=== PATIENT | female | born 1990 | race Caucasian/White ===

== ENCOUNTER 2016-04-25 19:56 | Emergency (ER) | payer MEDICAID, OTHER ==
[2016-04-25 20:03] VITALS: BP 113/79
--- NOTE | 2016-04-25 20:37 | EDM.PDOC ---
ED HPI HEAD INJURY - General Chief Complaint: Head Injury Stated Complaint: CONCUSSION?? Time Seen by Provider: 04/25/16 20:10 Source of Information: Reports: Patient History Limitations: Reports: No limitations - History of Present Illness INITIAL COMMENTS - FREE TEXT/NARRATIVE: fell on Monday against footboard states room went black but unsure if completely "out", Since has had frontal headache, been dizzy and nauseated. Severity: mild Worsens with: movement Associated Symptoms: Reports: headache, nausea/vomiting, dizziness. 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 OB/BYN History: edc 09/25/14 Other Musculoskeletal History: steroid injection right shoulder Other Psychiatric History: allergy to seroquel - Past Surgical History Other HEENT Surgeries/Procedures: lazy eye both side, has has several eye surgeries GI Surgical History: Reports: Hernia repair/other Social & Family History - Family History Family Medical History: Noncontributory - Tobacco Use Smoking Status *Q: Never Smoker Years of Tobacco use: 10 Used Tobacco, but Quit: Yes Month Tobacco Last Used: 11/11/13 Second Hand Smoke Exposure: No - Caffeine Use Caffeine Use: Reports: Coffee, Soda - Alcohol Use Days Per Week of Alcohol Use: 0 - Recreational Drug Use Recreational Drug Use: No Drug Use in Last 12 Months: Yes Recreational Drug Type: Reports: Marijuana/Hashish Recreational Drug Use Frequency: Binges - Sexual History Sexual History: Reports: Sexually active - Living Situation & Occupation Living situation: Reports: with family ED ROS GENERAL - Review of Systems Review Of Systems: ROS reveals no pertinent complaints other than HPI. ED EXAM, HEAD INJURY - Physical Exam Exam: See Below Exam Limited By: No limitations General Appearance: alert, no apparent distress Head: atraumatic, normocephalic, facial tenderness (left forehead and eye brow) . 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: 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, no motor/sensory deficits, normal mood/ affect, oriented x 3 Skin: Normal color - Ginger Coma Score Best Eye Response ([place]): (4) open spontaneously Best Verbal Response ([place]): (5) oriented Best Motor Response ([place]): (6) obeys commands Course - Vital Signs Last Recorded V/S: Last Vital Signs Temp 98 F 04/25/16 19:59 Pulse 84 04/25/16 19:59 Resp 18 04/25/16 19:59 BP 113/79 04/25/16 19:59 Pulse Ox 100 04/25/16 19:59 - Orders/Labs/Meds Labs: Laboratory Tests 04/25/16 Range/Units 20:30 Urine HCG, Qual Negative - Radiology Interpretation Free Text/Narrative:: CT head negative Departure - Departure Time of Disposition: 21:24 Disposition: Home, Self-Care 01 Condition: good Clinical Impression: Concussion injury of brain Instructions: Head Injury, Adult, [id number] Forms: ED Department Discharge Additional Instructions: rest increase fluids light activity with gradual increase tylenol for discomfort zofran 4mg ODT every 6 hours as needed for nausea #8 follow up in clinic if symptoms persit greater than one week
== END 2016-04-25 21:31 | disposition home or self-care (01) ==
LOC: DL.ED 19:56
DX: S06.0X9A Concussion with loss of consciousness of unspecified duration, initial encounter (principal); J45.909 Unspecified asthma, uncomplicated; Z91.040 Latex allergy status; Z88.0 Allergy status to penicillin; Z88.8 Allergy status to other drugs, medicaments and biological substances; W01.10XA Fall on same level from slipping, tripping and stumbling with subsequent striking against unspecified object, initial encounter
CPT/HCPCS: 70450; 81025; 99284

== ENCOUNTER 2016-08-30 20:21 | Emergency (ER) | payer MEDICAID ==
[2016-08-30 20:31] VITALS: BP 120/83
[2016-08-30] MEDS ORDERED: Sodium Chloride 0.9% 1,000 ML IV ONE (20:38)
[2016-08-30] MEDS ORDERED: Ketorolac 30 MG/ML SDV IVPUSH ONE (20:43)
--- NOTE | 2016-08-30 20:54 | EDM.PDOC ---
ED HPI GENERAL MEDICAL PROBLEM - General Chief Complaint: General Stated Complaint: PAIN IN CHEEKS, [id number] Time Seen by Provider: 08/30/16 20:32 Source of Information: Reports: Patient History Limitations: Reports: No Limitations - History of Present Illness INITIAL COMMENTS - FREE TEXT/NARRATIVE: This 26 yo female patient reports to the ED with bilateral upper jaw pain. The patient had facial surgery 3 weeks ago to repair an underbite. The patient reports she has had 27 screws placed after a bone graft. The patient reports she attempted to call her facial surgeon yesterday, but he is on vacation. The patient reports she ran out of pain medications and has not been able to eat or drink in the past 3 days. The patient reports she has also had some reddish discharge from her nose. Onset: Gradual Duration: Day(s):, Constant Location: Reports: Face (upper jaws) Quality: Reports: Ache, Stabbing, Throbbing Severity: Severe Improves with: Reports: None Worsens with: Reports: None Lower Face Pain Score (Numeric/FACES): 9 - Related Data Allergies Allergy/AdvReac Type Severity Reaction Status Date / Time latex Allergy Anaphylactic Verified 08/30/16 20:27 Shock Penicillins Allergy Anaphylactic Verified 08/30/16 20:27 Shock quetiapine fumarate Allergy Anaphylactic Verified 08/30/16 20:27 [From Seroquel] Shock Home Meds: Home Meds Albuterol Sulfate [Albuterol Sulfate HFA] 8.5 gm IH Q4H PRN 08/05/13 [History] Citalopram [Celexa] 10 mg PO DAILY 04/25/16 [History] Divalproex Sodium [Depakote] 1,000 mg PO DAILY 04/25/16 [History] Past Medical History Other HEENT History: 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 OB/BYN History: edc 09/25/14 Other Musculoskeletal History: steroid injection right shoulder Other Psychiatric History: allergy to seroquel - Past Surgical History GI Surgical History: Reports: Hernia Repair/Other Social & Family History - Family History Family Medical History: Noncontributory - Tobacco Use Smoking Status *Q: Never Smoker Years of Tobacco use: 10 Used Tobacco, but Quit: Yes Month Tobacco Last Used: 11/11/13 Second Hand Smoke Exposure: No - Caffeine Use Caffeine Use: Reports: Coffee, Soda - Alcohol Use Days Per Week of Alcohol Use: 0 - Recreational Drug Use Recreational Drug Use: No Drug Use in Last 12 Months: Yes Recreational Drug Type: Reports: Marijuana/Hashish Recreational Drug Use Frequency: Binges - Sexual History Sexual History: Reports: Sexually Active - Living Situation & Occupation Living situation: Reports: with Family ED ROS GENERAL - Review of Systems Review Of Systems: ROS reveals no pertinent complaints other than HPI. ED EXAM, GENERAL - Physical Exam Exam: See Below Exam Limited By: No Limitations General Appearance: Alert, WD/WN, Moderate Distress Eye Exam: Bilateral Eye: EOMI, Normal Inspection, PERRL Ears: Normal External Exam, Normal Canal, Hearing Grossly Normal, Normal TMs Nose: Normal Inspection, Normal Mucosa, No Blood Throat/Mouth: Other (The patient is unable to open her mouth more than 1/2 inch no apparent oral bleeding. ) Head: Facial Swelling, Facial Tenderness Neck: Normal Inspection, Supple, Non-Tender, Full Range of Motion Respiratory/Chest: No Respiratory Distress, Lungs Clear, Normal Breath Sounds, No Accessory Muscle Use, Chest Non-Tender Cardiovascular: Normal Peripheral Pulses, Regular Rate, Rhythm, No Edema, No Gallop, No JVD, No Murmur, No Rub GI/Abdominal: Normal Bowel Sounds, Soft, Non-Tender, No Organomegaly, No Distention, No Abnormal Bruit, No Mass (Female) Exam: Deferred Rectal (Female) Exam: Deferred Back Exam: Normal Inspection, Full Range of Motion, NT Extremities: Normal Inspection, Normal Range of Motion, Non-Tender, Normal Capillary Refill, No Pedal Edema Neurological: Alert, Oriented, CN II-XII Intact, Normal Cognition, Normal Gait, Normal Reflexes, No Motor/Sensory Deficits Psychiatric: Normal Affect, Normal Mood Skin Exam: Warm, Dry, Intact, Normal Color, No Rash Lymphatic: No Adenopathy Course - Vital Signs Last Recorded V/S: Last Vital Signs Temp 36.6 C 08/30/16 20:28 Pulse 78 08/30/16 20:28 Resp 18 08/30/16 20:28 BP 120/83 08/30/16 20:28 Pulse Ox 100 08/30/16 20:28 - Orders/Labs/Meds Orders: Active Orders 24 hr Category Date Time Status CULTURE BLOOD [BC] Stat Lab 08/30/16 20:33 Ordered CULTURE BLOOD [BC] Stat Lab 08/30/16 20:33 Ordered Sodium Chloride 0.9% [Normal Saline] 1,000 ml Med 08/30/16 20:38 Ordered IV .BOLUS Blood Culture x2 Reflex Set [OM.PC] Stat Oth 08/30/16 20:32 Ordered Medication Orders Sodium Chloride (Normal Saline) 1,000 mls @ 999 mls/hr IV .BOLUS ONE Stop: 08/30/16 21:38 Last Admin: 08/30/16 20:46 Dose: 999 mls/hr Labs: Laboratory Tests 08/30/16 08/30/16 08/30/16 Range/Units 20:35 20:35 20:35 WBC 6.2 (5.0-10.0) 10^3/uL RBC 4.07 L (4.2-5.4) 10^6/uL Hgb 12.4 (12.0-16.0) g/dL Hct 37.8 (37.0-47.0) % MCV 92.9 (80-100) fL MCH 30.5 (27.0-34.0) pg MCHC 32.8 L (33.0-35.0) g/dL Plt Count 180 (150-450) 10^3/uL Neut % (Auto) 36.4 L (42.2-75.2) % Lymph % (Auto) 50.8 H (20.5-50.1) % [place] % (Auto) 11.2 H (2-8) % Eos % (Auto) 1.1 (1.0-3.0) % Baso % (Auto) 0.5 (0.0-1.0) % Sodium 142 (135-145) mmol/L Potassium 3.7 (3.6-5.0) mmol/L Chloride 105 (101-111) mmol/L Carbon Dioxide 25.0 (21.0-31.0) mmol/L Anion Gap 15.7 BUN 3 L (7-18) mg/dL Creatinine 0.8 (0.6-1.3) mg/dL Est Cr Clr Drug Dosing TNP Estimated GFR (MDRD) > 60 BUN/Creatinine Ratio 3.75 Glucose 104 (74-105) mg/dL Lactic Acid 1.1 (0.5-2.2) mmol/L Calcium 9.6 (8.4-10.2) mg/dl Total Bilirubin 0.7 (0.2-1.0) mg/dL AST 26 (10-42) IU/L ALT 16 (10-60) IU/L Alkaline Phosphatase 98 (42-121) IU/L Total Protein 7.6 (6.7-8.2) g/dl Albumin 4.5 (3.2-5.5) g/dl Globulin 3.1 Albumin/Globulin Ratio 1.45 Meds: Medications Generic Name Dose Route Start Last Admin Trade Name Freq PRN Reason Stop Dose Admin Sodium Chloride 1,000 mls @ 999 mls/hr 08/30/16 20:38 08/30/16 20:46 Normal Saline IV 08/30/16 21:38 999 mls/hr .BOLUS ONE Administration Discontinued Medications Generic Name Dose Route Start Last Admin Trade Name Freq PRN Reason Stop Dose Admin Cephalexin Confirm 08/30/16 21:12 Keflex 250 Mg/5 Ml Susp Administered 08/30/16 21:13 Dose 10,000 mg .ROUTE .STK-MED ONE Hydromorphone HCl 0.5 mg 08/30/16 21:22 Dilaudid IVPUSH 08/30/16 21:23 ONETIME ONE Ketorolac Tromethamine 30 mg 08/30/16 20:43 08/30/16 20:47 Toradol IVPUSH 08/30/16 20:44 30 mg ONETIME ONE Administration Departure - Departure Time of Disposition: 21:27 Disposition: Home, Self-Care 01 Condition: Fair Clinical Impression: Sinusitis, acute maxillary Qualifiers: Recurrence: not specified as recurrent Qualified Code(s): J01.00 - Acute maxillary sinusitis, unspecified - Discharge Information Instructions: Sinusitis, Adult, [id number] Forms: ED Department Discharge Care Plan Goals: The patient was advised of the examination, lab, CT and x-ray results during the visit. The patient was given IV fluids, IV Toradol and IV Dilaudid while in the ED. The patient was encouraged to call her surgeon's office tomorrow for continued evaluation and further management. The patient was discharged with Keflex (250/5) to take 10 mL by mouth 2 times per day for 10 days. If the patient has any additional symptoms or concerns, the patient should follow-up with her surgeon, her primary care facility or return to the emergency department. - My Orders Last 24 Hours: My Active Orders 08/30/16 20:32 Blood Culture x2 Reflex Set [OM.PC] Stat 08/30/16 20:33 CULTURE BLOOD [BC] Stat CULTURE BLOOD [BC] Stat 08/30/16 20:38 Sodium Chloride 0.9% [Normal Saline] 1,000 ml IV .BOLUS - Assessment/Plan Last 24 Hours: My Active Orders 08/30/16 20:32 Blood Culture x2 Reflex Set [OM.PC] Stat 08/30/16 20:33 CULTURE BLOOD [BC] Stat CULTURE BLOOD [BC] Stat 08/30/16 20:38 Sodium Chloride 0.9% [Normal Saline] 1,000 ml IV .BOLUS
[2016-08-30 21:00] LABS: CHLORIDE,CL 105 mmol/L (101-111); SODIUM,NA 142 mmol/L (135-145)
[2016-08-30] MEDS ORDERED: Cephalexin 250 MG/5 ML Susp 200 ML Bottle PO ONE (21:12)
[2016-08-30] MEDS ORDERED: Cephalexin 250 MG/5 ML Susp 200 ML Bottle ONE (21:12)
[2016-08-30] MEDS ORDERED: HYDROmorphone 1 MG/ML Syringe IVPUSH ONE (21:22)
== END 2016-08-30 21:36 | disposition home or self-care (01) ==
LOC: DL.ED 20:21
DX: J01.00 Acute maxillary sinusitis, unspecified (principal); J45.909 Unspecified asthma, uncomplicated; Z91.040 Latex allergy status; Z88.0 Allergy status to penicillin; Z79.899 Other long term (current) drug therapy
CPT/HCPCS: 36415; 70486; 71020; 80053; 83605; 85025; 87040; 96361; 96374; 96375; 99284; J1170; J1885; J7030; A9270-GY

== ENCOUNTER 2017-01-31 18:47 | Emergency (ER) | payer MEDICAID ==
[2017-01-31] MEDS ORDERED: Ondansetron 4 MG Tab.DIS PO ONE (18:48)
[2017-01-31] MEDS ORDERED: Sodium Chloride 0.9% 1,000 ML IV ONE (18:55)
[2017-01-31] MEDS ORDERED: Ondansetron 4 MG/2 ML SDV IV ONE (18:55)
--- NOTE | 2017-01-31 19:31 | EDM.PDOC ---
ED HPI GENERAL MEDICAL PROBLEM - General Chief Complaint: Genitourinary Problem Stated Complaint: KIDNEY STONES Time Seen by Provider: 01/31/17 19:28 Source of Information: Reports: Patient History Limitations: Reports: No Limitations - History of Present Illness INITIAL COMMENTS - FREE TEXT/NARRATIVE: This 27 yo female patient reports to the ED with generalized abdominal and upper back pain. The patient reports her symptoms started yesterday. The patient reports her primary care provider did not have any openings. The patient reports urinary frequency and pain that started at about noon today. The patient reports a past history of kidney stones with similar symptoms. Onset Date: 01/30/17 Duration: Constant, Getting Worse Location: Reports: Abdomen, Generalized (bilateral flank pain) Quality: Reports: Ache, Burning Severity: Moderate Improves with: Reports: None Worsens with: Reports: None Associated Symptoms: Reports: No Other Symptoms, Nausea/Vomiting Bilateral Lower Back Pain Score (Numeric/FACES): 8 - Related Data Allergies Allergy/AdvReac Type Severity Reaction Status Date / Time latex Allergy Anaphylactic Verified 08/30/16 20:27 Shock Penicillins Allergy Anaphylactic Verified 08/30/16 20:27 Shock quetiapine fumarate Allergy Anaphylactic Verified 08/30/16 20:27 [From Seroquel] Shock Home Meds: Home Meds Albuterol Sulfate [Albuterol Sulfate HFA] 8.5 gm IH Q4H PRN 08/05/13 [History] Citalopram [Celexa] 10 mg PO DAILY 04/25/16 [History] Divalproex Sodium [Depakote] 1,000 mg PO DAILY 04/25/16 [History] Past Medical History Other HEENT History: 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 OB/BYN History: edc 09/25/14 Other Musculoskeletal History: steroid injection right shoulder Neurological History: Reports: None Psychiatric History: Reports: None Other Psychiatric History: allergy to seroquel Endocrine/Metabolic History: Reports: None Hematologic History: Reports: None Immunologic History: Reports: None Dermatologic History: Reports: None - Past Surgical History GI Surgical History: Reports: Hernia Repair/Other Social & Family History - Family History Family Medical History: Noncontributory - Tobacco Use Smoking Status *Q: Current Some Day Smoker Years of Tobacco use: 1 Packs/Tins Daily: 0.2 Used Tobacco, but Quit: Yes Month Tobacco Last Used: 11/11/13 Second Hand Smoke Exposure: No - Caffeine Use Caffeine Use: Reports: Soda - Alcohol Use Days Per Week of Alcohol Use: 0 - Recreational Drug Use Recreational Drug Use: No Drug Use in Last 12 Months: Yes Recreational Drug Type: Reports: Marijuana/Hashish Recreational Drug Use Frequency: Binges - Sexual History Sexual History: Reports: Sexually Active - Living Situation & Occupation Living situation: Reports: with Family ED ROS GENERAL - Review of Systems Review Of Systems: ROS reveals no pertinent complaints other than HPI. ED EXAM, RENAL/ - Physical Exam Exam: See Below Exam Limited By: No Limitations General Appearance: Alert, WD/WN, Moderate Distress Eye Exam: Bilateral Eye: EOMI, Normal Inspection, PERRL Ears: Normal External Exam, Normal Canal, Hearing Grossly Normal, Normal TMs Nose: Normal Inspection, Normal Mucosa, No Blood Throat/Mouth: Normal Inspection, Normal Lips, Normal Teeth, Normal Gums, Normal Oropharynx, Normal Voice, No Airway Compromise Head: Atraumatic, Normocephalic Neck: Normal Inspection, Supple, Non-Tender, Full Range of Motion Respiratory/Chest: No Respiratory Distress, Lungs Clear, Normal Breath Sounds, No Accessory Muscle Use, Chest Non-Tender Cardiovascular: Normal Peripheral Pulses, Regular Rate, Rhythm, No Edema, No Gallop, No JVD, No Murmur, No Rub GI/Abdominal: Normal Bowel Sounds, Soft, No Organomegaly, No Abnormal Bruit, No Mass, Pelvis Stable, Tender (epigastric tenderness and lower abdominal tenderness to palpation) (Female) Exam: Deferred Rectal (Female) Exam: Deferred Back Exam: CVA Tenderness (L), CVA Tenderness (R) Extremities: Normal Inspection, Normal Range of Motion, Non-Tender, Normal Capillary Refill, No Pedal Edema Neurological: Alert, Oriented, CN II-XII Intact, Normal Cognition, Normal Gait, Normal Reflexes, No Motor/Sensory Deficits Psychiatric: Normal Affect, Normal Mood Skin Exam: Warm, Dry, Intact, Normal Color, No Rash Lymphatic: No Adenopathy Course - Vital Signs Last Recorded V/S: Last Vital Signs Temp 36.4 C 01/31/17 18:51 Pulse 96 01/31/17 18:51 Resp 16 01/31/17 18:51 BP 123/76 01/31/17 18:51 Pulse Ox 100 01/31/17 18:51 - Orders/Labs/Meds Labs: Laboratory Tests 01/31/17 01/31/17 01/31/17 Range/Units 19:00 19:00 19:00 WBC 7.2 (5.0-10.0) 10^3/uL RBC 4.17 L (4.2-5.4) 10^6/uL Hgb 12.8 (12.0-16.0) g/dL Hct 37.8 (37.0-47.0) % MCV 90.6 (80-100) fL MCH 30.7 (27.0-34.0) pg MCHC 33.9 (33.0-35.0) g/dL Plt Count 164 (150-450) 10^3/uL Neut % (Auto) 61.6 (42.2-75.2) % Lymph % (Auto) 26.1 (20.5-50.1) % [place] % (Auto) 10.9 H (2-8) % Eos % (Auto) 1.1 (1.0-3.0) % Baso % (Auto) 0.3 (0.0-1.0) % Sodium 136 (135-145) mmol/L Potassium 3.6 (3.6-5.0) mmol/L Chloride 102 (101-111) mmol/L Carbon Dioxide 24.0 (21.0-31.0) mmol/L Anion Gap 13.6 BUN 8 (7-18) mg/dL Creatinine 0.6 (0.6-1.3) mg/dL Est Cr Clr Drug Dosing 102.95 mL/min Estimated GFR (MDRD) > 60 BUN/Creatinine Ratio 13.33 Glucose 82 (74-105) mg/dL Calcium 8.0 L D (8.4-10.2) mg/dl Total Bilirubin 0.6 (0.2-1.0) mg/dL AST 17 (10-42) IU/L ALT 12 (10-60) IU/L Alkaline Phosphatase 40 L (42-121) IU/L Total Protein 6.5 L (6.7-8.2) g/dl Albumin 3.4 (3.2-5.5) g/dl Globulin 3.1 Albumin/Globulin Ratio 1.10 Amylase (28-100) U/L Lipase 21 L (22-51) U/L Urine Color (YELLOW) Urine Appearance (CLEAR) Urine pH (5.0-9.0) Ur Specific [place] (1.005-1.030) Urine Protein (NEGATIVE) Urine Glucose (UA) (NEGATIVE) Urine Ketones (NEGATIVE) Urine Occult Blood (NEGATIVE) Urine Nitrite (NEGATIVE) Urine Bilirubin (NEGATIVE) Urine Urobilinogen (0.2-1.0) mg/dL Ur Leukocyte Esterase (NEGATIVE) Urine RBC /HPF Urine WBC (0-5/HPF) /HPF Ur Epithelial Cells /HPF Urine Bacteria (0-FEW/HPF) /HPF Urine HCG, Qual Urine Opiates Screen (NEGATIVE) Ur Oxycodone Screen (NEGATIVE) Urine Methadone Screen (NEGATIVE) Ur Barbiturates Screen (NEGATIVE) U Tricyclic Antidepress (NEGATIVE) Ur Phencyclidine Scrn (NEGATIVE) Ur Amphetamine Screen (NEGATIVE) U Methamphetamines Scrn (NEGATIVE) Urine MDMA Screen (NEGATIVE) U Benzodiazepines Scrn (NEGATIVE) Urine Cocaine Screen (NEGATIVE) U Marijuana (THC) Screen (NEGATIVE) 01/31/17 01/31/17 01/31/17 Range/Units 19:00 19:08 19:08 WBC (5.0-10.0) 10^3/uL RBC (4.2-5.4) 10^6/uL Hgb (12.0-16.0) g/dL Hct (37.0-47.0) % MCV (80-100) fL MCH (27.0-34.0) pg MCHC (33.0-35.0) g/dL Plt Count (150-450) 10^3/uL Neut % (Auto) (42.2-75.2) % Lymph % (Auto) (20.5-50.1) % [place] % (Auto) (2-8) % Eos % (Auto) (1.0-3.0) % Baso % (Auto) (0.0-1.0) % Sodium (135-145) mmol/L Potassium (3.6-5.0) mmol/L Chloride (101-111) mmol/L Carbon Dioxide (21.0-31.0) mmol/L Anion Gap BUN (7-18) mg/dL Creatinine (0.6-1.3) mg/dL Est Cr Clr Drug Dosing mL/min Estimated GFR (MDRD) BUN/Creatinine Ratio Glucose (74-105) mg/dL Calcium (8.4-10.2) mg/dl Total Bilirubin (0.2-1.0) mg/dL AST (10-42) IU/L ALT (10-60) IU/L Alkaline Phosphatase (42-121) IU/L Total Protein (6.7-8.2) g/dl Albumin (3.2-5.5) g/dl Globulin Albumin/Globulin Ratio Amylase 52 (28-100) U/L Lipase (22-51) U/L Urine Color (YELLOW) Urine Appearance (CLEAR) Urine pH (5.0-9.0) Ur Specific [place] (1.005-1.030) Urine Protein (NEGATIVE) Urine Glucose (UA) (NEGATIVE) Urine Ketones (NEGATIVE) Urine Occult Blood (NEGATIVE) Urine Nitrite (NEGATIVE) Urine Bilirubin (NEGATIVE) Urine Urobilinogen (0.2-1.0) mg/dL Ur Leukocyte Esterase (NEGATIVE) Urine RBC /HPF Urine WBC (0-5/HPF) /HPF Ur Epithelial Cells /HPF Urine Bacteria (0-FEW/HPF) /HPF Urine HCG, Qual Negative Urine Opiates Screen Negative (NEGATIVE) Ur Oxycodone Screen Negative (NEGATIVE) Urine Methadone Screen Negative (NEGATIVE) Ur Barbiturates Screen Negative (NEGATIVE) U Tricyclic Antidepress Negative (NEGATIVE) Ur Phencyclidine Scrn Negative (NEGATIVE) Ur Amphetamine Screen Negative (NEGATIVE) U Methamphetamines Scrn Negative (NEGATIVE) Urine MDMA Screen Negative (NEGATIVE) U Benzodiazepines Scrn Negative (NEGATIVE) Urine Cocaine Screen Negative (NEGATIVE) U Marijuana (THC) Screen Positive H (NEGATIVE) 01/31/17 Range/Units 19:08 WBC (5.0-10.0) 10^3/uL RBC (4.2-5.4) 10^6/uL Hgb (12.0-16.0) g/dL Hct (37.0-47.0) % MCV (80-100) fL MCH (27.0-34.0) pg MCHC (33.0-35.0) g/dL Plt Count (150-450) 10^3/uL Neut % (Auto) (42.2-75.2) % Lymph % (Auto) (20.5-50.1) % [place] % (Auto) (2-8) % Eos % (Auto) (1.0-3.0) % Baso % (Auto) (0.0-1.0) % Sodium (135-145) mmol/L Potassium (3.6-5.0) mmol/L Chloride (101-111) mmol/L Carbon Dioxide (21.0-31.0) mmol/L Anion Gap BUN (7-18) mg/dL Creatinine (0.6-1.3) mg/dL Est Cr Clr Drug Dosing mL/min Estimated GFR (MDRD) BUN/Creatinine Ratio Glucose (74-105) mg/dL Calcium (8.4-10.2) mg/dl Total Bilirubin (0.2-1.0) mg/dL AST (10-42) IU/L ALT (10-60) IU/L Alkaline Phosphatase (42-121) IU/L Total Protein (6.7-8.2) g/dl Albumin (3.2-5.5) g/dl Globulin Albumin/Globulin Ratio Amylase (28-100) U/L Lipase (22-51) U/L Urine Color Yellow (YELLOW) Urine Appearance Clear (CLEAR) Urine pH 7.0 (5.0-9.0) Ur Specific [place] 1.015 (1.005-1.030) Urine Protein Negative (NEGATIVE) Urine Glucose (UA) Negative (NEGATIVE) Urine Ketones Negative (NEGATIVE) Urine Occult Blood Negative (NEGATIVE) Urine Nitrite Negative (NEGATIVE) Urine Bilirubin Negative (NEGATIVE) Urine Urobilinogen 0.2 (0.2-1.0) mg/dL Ur Leukocyte Esterase Negative (NEGATIVE) Urine RBC Not seen /HPF Urine WBC 0-5 (0-5/HPF) /HPF Ur Epithelial Cells Few /HPF Urine Bacteria Few (0-FEW/HPF) /HPF Urine HCG, Qual Urine Opiates Screen (NEGATIVE) Ur Oxycodone Screen (NEGATIVE) Urine Methadone Screen (NEGATIVE) Ur Barbiturates Screen (NEGATIVE) U Tricyclic Antidepress (NEGATIVE) Ur Phencyclidine Scrn (NEGATIVE) Ur Amphetamine Screen (NEGATIVE) U Methamphetamines Scrn (NEGATIVE) Urine MDMA Screen (NEGATIVE) U Benzodiazepines Scrn (NEGATIVE) Urine Cocaine Screen (NEGATIVE) U Marijuana (THC) Screen (NEGATIVE) Meds: Medications Discontinued Medications Generic Name Dose Route Start Last Admin Trade Name Helder PRN Reason Stop Dose Admin Sodium Chloride 1,000 mls @ 999 mls/hr 01/31/17 18:55 01/31/17 19:15 Normal Saline IV 01/31/17 19:55 999 mls/hr .BOLUS ONE Administration Ketorolac Tromethamine 30 mg 01/31/17 19:52 Toradol IVPUSH 01/31/17 19:53 ONETIME ONE Ondansetron HCl 4 mg 01/31/17 18:55 01/31/17 19:16 Zofran IV 01/31/17 18:56 4 mg ONETIME ONE Administration Departure - Departure Time of Disposition: 07:57 Disposition: Home, Self-Care 01 Condition: Fair Clinical Impression: Gastroenteritis - Discharge Information Instructions: Viral Gastroenteritis, Adult, Vaau-[id number] Forms: ED Department Discharge Care Plan Goals: The patient and family were advised of the examination and lab results during the visit. The patient was given a liter of IV fluid, IV Zofran and IV Toradal while in the ED. The patient was discharged with Zofran ODT (4 mg) #2 to take 1 by mouth every 6 hours and a script for Zofran (4 mg) #20 to take 1 by mouth every 6 hours as needed. The patient should stick to a BRAT diet (bananas, rice , applesauce and toast) over the next 24-48 hours with small frequent sips of water. If the patient has any additional symptoms or concerns, the patient should follow-up with her primary care facility or return to the ED.
[2017-01-31 19:35] LABS: CHLORIDE,CL 102 mmol/L (101-111); SODIUM,NA 136 mmol/L (135-145)
[2017-01-31] MEDS ORDERED: Ketorolac 30 MG/ML SDV IVPUSH ONE (19:52)
[2017-01-31] MEDS ORDERED: Ondansetron 4 MG Tab.DIS ONE (20:00)
[2017-01-31 20:19] VITALS: BP 115/76
== END 2017-01-31 20:22 | disposition home or self-care (01) ==
LOC: DL.ED 18:47
DX: K52.9 Noninfective gastroenteritis and colitis, unspecified (principal); F17.210 Nicotine dependence, cigarettes, uncomplicated; Z91.040 Latex allergy status; Z88.0 Allergy status to penicillin; Z79.899 Other long term (current) drug therapy
CPT/HCPCS: 36415; 80053; 80305; 81001; 81025; 82150; 83690; 85025; 96365; 96375; 99284; J1885; J2405; J7030; A9270-GY